=== PATIENT | female | born 1950 | race Caucasian/White ===

== ENCOUNTER 2022-05-11 20:32 | Emergency (ER) | payer BC, MEDICAID ==
[~2022-05-11] VITALS: Ht 152.4 cm; Wt 34.0 kg
[2022-05-11 20:54] LABS: BASOPHILS # (AUTO) 0.1 X10'3 (0-0.2); BASOPHILS % (AUTO) 0.4 % (0-1); EOSINOPHILS % (AUTO) 0.1 % (0-6); HEMATOCRIT 41.9 % (35.0-45.0); HEMOGLOBIN 13.9 g/dl (12.0-16.0); LYMPHOCYTES % (AUTO) 6.5 % (21-51); MEAN CORPUSCULAR HEMOGLOBIN 29.1 PG (27.0-31.0); MEAN CORPUSCULAR HGB CONC 33.2 g/dL (33.0-36.5); MEAN CORPUSCULAR VOLUME 87.8 FL (78-98); MEAN PLATELET VOLUME 7.3 FL (7.4-10.4); MONOCYTES # (AUTO) 1.1 X10'3 (0-0.9); MONOCYTES % (AUTO) 7.3 % (2-12); NEUTROPHILS # (AUTO) 13.3 X10'3 (1.8-7.7); NEUTROPHILS % (AUTO) 85.7 % (42-75); PLATELET COUNT 364 X10'3 (140-440); RED BLOOD COUNT 4.77 X10'6 (4.20-5.60); RED CELL DISTRIBUTION WIDTH 15.2 % (11.5-14.5); WHITE BLOOD COUNT 15.5 X10'3 (4.5-11.0)
[2022-05-11 20:58] VITALS: BP 161/110
--- NOTE | 2022-05-11 21:09 | NUR ---
patient placed on supplementary O2 in lobby 3l
[2022-05-11 21:13] LABS: ALANINE AMINOTRANSFERASE 15 U/L (12-78); ALBUMIN 3.9 G/DL (3.4-5.0); ALBUMIN/GLOBULIN RATIO 1.1 (1.1-1.5); ALKALINE PHOSPHATASE 76 IU/L (46-116); ANION GAP 8 (8-16); ASPARTATE AMINO TRANSFERASE 21 U/L (10-37); BILIRUBIN,TOTAL 0.6 MG/DL (0.1-1.0); BLOOD UREA NITROGEN 13 MG/DL (7-18); BUN/CREATININE RATIO 13.1 (6.6-38.0); CALCIUM 8.9 MG/DL (8.5-10.1); CHLORIDE 96 MMOL/L (99-107); CREATININE 0.99 MG/DL (0.40-0.90); GLUCOSE 114 MG/DL (70-104); MAGNESIUM 1.7 MG/DL (1.5-2.4); POTASSIUM 4.1 MMOL/L (3.5-5.1); SODIUM 136 MMOL/L (135-145); TOTAL CARBON DIOXIDE 31.6 MMOL/L (24-32); TOTAL PROTEIN 7.6 G/DL (6.4-8.2); eGFR 55 ML/MIN
== END 2022-05-12 04:33 | disposition left against medical advice (07) ==
LOC: ER 20:34
DX: R06.02 Shortness of breath (principal); Z53.21 Procedure and treatment not carried out due to patient leaving prior to being seen by health care provider
CPT/HCPCS: 36415; 80053; 83735; 83880; 84484; 85025; 93005

== ENCOUNTER 2022-05-13 13:16 | Inpatient (IN) | payer BC, MEDICAID ==
[~2022-05-13] VITALS: Ht 152.4 cm; Wt 47.2 kg
[2022-05-13 14:00] LABS: BASOPHILS # (AUTO) 0.1 X10'3 (0-0.2); BASOPHILS % (AUTO) 0.2 % (0-1); EOSINOPHILS % (AUTO) 0 % (0-6); HEMOGLOBIN 12.6 g/dl (12.0-16.0); LYMPHOCYTES # (AUTO) 0.6 X10'3 (1.1-4.8); LYMPHOCYTES % (AUTO) 2.7 % (21-51); MEAN CORPUSCULAR HEMOGLOBIN 28.6 PG (27.0-31.0); MEAN CORPUSCULAR HGB CONC 32.3 g/dL (33.0-36.5); MEAN CORPUSCULAR VOLUME 88.6 FL (78-98); MEAN PLATELET VOLUME 7.6 FL (7.4-10.4); MONOCYTES # (AUTO) 1.4 X10'3 (0-0.9); MONOCYTES % (AUTO) 6.2 % (2-12); NEUTROPHILS # (AUTO) 20.6 X10'3 (1.8-7.7); NEUTROPHILS % (AUTO) 90.9 % (42-75); PLATELET COUNT 272 X10'3 (140-440); RED CELL DISTRIBUTION WIDTH 15.1 % (11.5-14.5); WHITE BLOOD COUNT 22.6 X10'3 (4.5-11.0)
[2022-05-13] MEDS ORDERED: acetaminophen 325mg tablet PO STA (14:00)
[2022-05-13] MEDS ORDERED: normal saline 1000ML IV soln IV ONE (14:00)
[2022-05-13] MEDS ORDERED: methylPREDNISolone sod succ 125mg/2ml vial IV ONE (14:00)
[2022-05-13] MEDS ORDERED: magnesium 2GM in 50ml NS 50 ML IV ONE (14:00)
[2022-05-13] MEDS ORDERED: albuterol 2.5 MG/3 ML nebule CONTNEB PRN (14:00)
[2022-05-13 14:25] LABS: ALBUMIN 3.1 G/DL (3.4-5.0); ALBUMIN/GLOBULIN RATIO 0.8 (1.1-1.5); ALKALINE PHOSPHATASE 73 IU/L (46-116); ANION GAP 9 (8-16); ASPARTATE AMINO TRANSFERASE 32 U/L (10-37); BILIRUBIN,TOTAL 1.2 MG/DL (0.1-1.0); BLOOD UREA NITROGEN 21 MG/DL (7-18); BUN/CREATININE RATIO 20.2 (6.6-38.0); CALCIUM 8.8 MG/DL (8.5-10.1); CHLORIDE 92 MMOL/L (99-107); CREATININE 1.04 MG/DL (0.40-0.90); GLUCOSE 130 MG/DL (70-104); POTASSIUM 3.6 MMOL/L (3.5-5.1); SODIUM 131 MMOL/L (135-145); TOTAL CARBON DIOXIDE 29.7 MMOL/L (24-32); TOTAL PROTEIN 7.1 G/DL (6.4-8.2); eGFR 52 ML/MIN
[2022-05-13 14:26] LABS: ALANINE AMINOTRANSFERASE 30 U/L (12-78)
[2022-05-13] MEDS ORDERED: azithromycin/NS 500mg/250ml 250 ML IV ONE (14:40)
[2022-05-13] MEDS ORDERED: CefTRIAXone 2gm/D5W 50ml BAG 50 ML IV ONE (14:40)
[2022-05-13] MEDS ORDERED: normal saline 1000ML IV soln IVB ONE (16:00)
[2022-05-13] MEDS ORDERED: potassium Cl 20 mEq SR tablet PO PRN ×2 (17:15)
[2022-05-13] MEDS ORDERED: magnesium 4gm in 100ml NS 100 ML IV PRN (17:15)
[2022-05-13] MEDS ORDERED: ondansetron/PF 4mg/2ml inj IV PRN (17:15)
[2022-05-13] MEDS ORDERED: magnesium Cl slow-release 64mg tablet PO PRN (17:15)
[2022-05-13] MEDS ORDERED: potassium Cl 40MEQ/1/2NS 520ml 520 ML IV PRN (17:15)
[2022-05-13] MEDS ORDERED: magnesium hydroxide 30ml (MOM) UD suspension PO PRN (17:15)
[2022-05-13] MEDS ORDERED: mag hydrox/Alum hydrox/simeth 30ml oral suspension PO PRN (17:15)
[2022-05-13] MEDS: normal saline 1000ml 1,000 ML IV SCH (18:36)
[2022-05-13] MEDS: ipratropium/albuterol 3ml nebule NEB SCH ×2 (19:43→23:16)
--- NOTE | 2022-05-13 19:52 | NUR ---
JAMIE DAUGHTER: [phone]
[2022-05-13] MEDS: K and/or MAG REPLACEMENT MC SCH (20:00)
--- NOTE | 2022-05-13 20:03 | NUR ---
Patient in room ED 12. I have received report from GABY ROMERO and had the opportunity to ask questions and assume patient care.
[2022-05-13 21:00] VITALS: BP 129/57
[2022-05-13] MEDS: methylPREDNISolone sod succ 125mg/2ml vial IV SCH (21:11)
[2022-05-13] MEDS: docusate sod 100mg capsule PO SCH (21:11)
[2022-05-13] MEDS: heparin, porcine 5000 units/ml vial SQ SCH (21:12)
[2022-05-14 02:00] VITALS: BP 93/60
[2022-05-14 03:09] LABS: BASOPHILS % (AUTO) 0.1 % (0-1); EOSINOPHILS % (AUTO) 0 % (0-6); HEMATOCRIT 33.4 % (35.0-45.0); HEMOGLOBIN 11.1 g/dl (12.0-16.0); LYMPHOCYTES # (AUTO) 0.4 X10'3 (1.1-4.8); LYMPHOCYTES % (AUTO) 2.3 % (21-51); MEAN CORPUSCULAR HEMOGLOBIN 29.1 PG (27.0-31.0); MEAN CORPUSCULAR HGB CONC 33.1 g/dL (33.0-36.5); MEAN CORPUSCULAR VOLUME 87.8 FL (78-98); MEAN PLATELET VOLUME 7.7 FL (7.4-10.4); MONOCYTES # (AUTO) 0.6 X10'3 (0-0.9); MONOCYTES % (AUTO) 3.1 % (2-12); NEUTROPHILS # (AUTO) 17.1 X10'3 (1.8-7.7); NEUTROPHILS % (AUTO) 94.5 % (42-75); PLATELET COUNT 226 X10'3 (140-440); RED CELL DISTRIBUTION WIDTH 15.5 % (11.5-14.5); WHITE BLOOD COUNT 18.1 X10'3 (4.5-11.0)
[2022-05-14] MEDS: ipratropium/albuterol 3ml nebule NEB SCH ×6 (03:14→23:30)
[2022-05-14 03:20] LABS: GLUCOSE 145 MG/DL (70-104); POTASSIUM 3.8 MMOL/L (3.5-5.1); SODIUM 133 MMOL/L (135-145)
[2022-05-14 03:21] LABS: ALBUMIN 2.3 G/DL (3.4-5.0); ANION GAP 1 (8-16); BLOOD UREA NITROGEN 17 MG/DL (7-18); BUN/CREATININE RATIO 28.3 (6.6-38.0); CHLORIDE 102 MMOL/L (99-107); MAGNESIUM 2.3 MG/DL (1.5-2.4); TOTAL CARBON DIOXIDE 29.8 MMOL/L (24-32); eGFR > 90 ML/MIN
[2022-05-14] MEDS: normal saline 1000ml 1,000 ML IV SCH ×2 (04:15→13:54)
[2022-05-14 06:00] VITALS: BP 93/54
--- NOTE | 2022-05-14 06:37 | NUR ---
Problems reprioritized. Patient report given, questions answered & plan of care reviewed with GABY Peterson.
--- NOTE | 2022-05-14 06:54 | NUR ---
Patient in room PCU 3028. I have received report from GABY TOVAR, and had the opportunity to ask questions and assume patient care.
[2022-05-14] MEDS: K and/or MAG REPLACEMENT MC SCH ×2 (06:58→19:19)
[2022-05-14] MEDS: CefTRIAXone/D5W-Rocephin 1gm 50 ML IV SCH (08:41)
[2022-05-14] MEDS: methylPREDNISolone sod succ 125mg/2ml vial IV SCH ×2 (08:42→19:11)
[2022-05-14] MEDS: heparin, porcine 5000 units/ml vial SQ SCH ×2 (08:43→19:10)
[2022-05-14] MEDS: docusate sod 100mg capsule PO SCH ×2 (08:46→19:10)
[2022-05-14] MEDS: azithromycin 250mg tablet PO SCH (08:46)
[2022-05-14] MEDS: lactose-reduced food (Ensure Enlive) - 237ml bottle PO SCH ×3 (08:46→13:10)
[2022-05-14 11:25] VITALS: BP 107/62
--- NOTE | 2022-05-14 13:02 | NUR ---
Malnutrition consult: Pt seen at bedside reports gradual wt loss over the course of several years with unknown etiology. Pt reports weighing 110 lbs when she moved to [place] in 2014 and states current wt is in the 70s lb range. Unable to obtain more recent UBW. 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 Pt states appetite is currently improving, though only documented with 25% PO intake of first two meals. Per EMR pt refused first ONS, states she prefers strawberry flavor only which is unfortunately currently out of stock, pt agrees to vanilla in the mean time, dietary notified. Pt states she prefers Boost but willing to drink Ensure and gladly accepted ONS coupons. RD discussed ways to improve appetite and increase kcal intake in hopes of assisting with wt maintenance/gain. Pt admit for sepsis, PNA, COPD exacerbation, acute on chronic respiratory failure, and hyponatremia. Pt denies food allergies, food preferences, difficulty chewing/swallowing, or constipation/diarrhea. Per pt LBM this morning. Pt provided with RD contact information. Will continue to follow closely and monitor need for further nutrition intervention. Recommendations: 1) Liberalize to regular diet 2) [place] Ensure Plus HP TID, sub vanilla until strawberry back in stock (does not like chocolate) - Ensure Enlive currently out of stock 3) Routine bowel care 4) Scaled weight this admit; subsequent weekly scaled weights Addendum: 05/14/22 at [address] Amended: Links added.
[2022-05-14] MEDS ORDERED: ALBU17AE26 PO (13:05)
[2022-05-14 15:19] VITALS: BP 99/55
--- NOTE | 2022-05-14 18:19 | NUR ---
Problems reprioritized. Patient report given, questions answered & plan of care reviewed with GABY ROMERO.
[2022-05-14 19:00] VITALS: BP 100/55
[2022-05-14 22:29] VITALS: BP 96/60
[2022-05-15 03:14] VITALS: BP 117/67
[2022-05-15] MEDS: ipratropium/albuterol 3ml nebule NEB SCH ×6 (03:31→23:23)
[2022-05-15 06:00] VITALS: BP 101/59
--- NOTE | 2022-05-15 06:15 | NUR ---
Patient in room PCU 3028. I have received report from Chary GRIFFIN and had the opportunity to ask questions and assume patient care.Bedside report completed. Pt resting , call light in reach. Addendum: 05/15/22 at 0633 by Cheri Barrera RN Amended: Links added.
[2022-05-15 06:32] LABS: BASOPHILS # (AUTO) 0.1 X10'3 (0-0.2); BASOPHILS % (AUTO) 0.2 % (0-1); EOSINOPHILS % (AUTO) 0 % (0-6); HEMATOCRIT 34.4 % (35.0-45.0); HEMOGLOBIN 11.2 g/dl (12.0-16.0); LYMPHOCYTES # (AUTO) 0.5 X10'3 (1.1-4.8); LYMPHOCYTES % (AUTO) 1.7 % (21-51); MEAN CORPUSCULAR HEMOGLOBIN 28.8 PG (27.0-31.0); MEAN CORPUSCULAR HGB CONC 32.6 g/dL (33.0-36.5); MEAN CORPUSCULAR VOLUME 88.2 FL (78-98); MEAN PLATELET VOLUME 8.9 FL (7.4-10.4); MONOCYTES # (AUTO) 1.6 X10'3 (0-0.9); MONOCYTES % (AUTO) 5.2 % (2-12); NEUTROPHILS # (AUTO) 28.2 X10'3 (1.8-7.7); NEUTROPHILS % (AUTO) 92.9 % (42-75); PLATELET COUNT 303 X10'3 (140-440); RED CELL DISTRIBUTION WIDTH 15.8 % (11.5-14.5)
[2022-05-15 06:36] LABS: ALBUMIN 2.2 G/DL (3.4-5.0); ANION GAP 3 (8-16); BLOOD UREA NITROGEN 20 MG/DL (7-18); BUN/CREATININE RATIO 38.5 (6.6-38.0); CALCIUM 8.8 MG/DL (8.5-10.1); CHLORIDE 102 MMOL/L (99-107); CREATININE 0.52 MG/DL (0.40-0.90); GLUCOSE 131 MG/DL (70-104); MAGNESIUM 1.9 MG/DL (1.5-2.4); POTASSIUM 4.9 MMOL/L (3.5-5.1); SODIUM 134 MMOL/L (135-145); TOTAL CARBON DIOXIDE 28.9 MMOL/L (24-32); eGFR > 90 ML/MIN
[2022-05-15 06:37] LABS: WHITE BLOOD COUNT 30.4 X10'3 (4.5-11.0)
[2022-05-15 07:00] LABS: TOTAL CELLS COUNTED 100
[2022-05-15 07:01] LABS: ANISOCYTOSIS 1+; PLATELET ESTIMATE NORMAL
--- NOTE | 2022-05-15 07:10 | NUR ---
MESSAGE: 3028b Julián. WBC 30.4, Last LA 0.6. Pt on Rocephin 1 gm QD. BC neg. Cheri JUSTINU
[2022-05-15] MEDS: K and/or MAG REPLACEMENT MC SCH ×2 (08:00→19:55)
[2022-05-15] MEDS: lactose-reduced food (Ensure Enlive) - 237ml bottle PO SCH ×3 (08:00→18:01)
[2022-05-15] MEDS: methylPREDNISolone sod succ 125mg/2ml vial IV SCH ×2 (08:22→19:58)
[2022-05-15] MEDS: azithromycin 250mg tablet PO SCH (08:23)
[2022-05-15] MEDS: CefTRIAXone/D5W-Rocephin 1gm 50 ML IV SCH (08:23)
[2022-05-15] MEDS: docusate sod 100mg capsule PO SCH ×2 (08:23→19:54)
[2022-05-15] MEDS: heparin, porcine 5000 units/ml vial SQ SCH ×2 (08:24→19:58)
[2022-05-15 11:27] VITALS: BP 103/61
[2022-05-15 15:17] VITALS: BP 101/58
--- NOTE | 2022-05-15 18:01 | NUR ---
Pt had a good day. Watching Tv and working on word puzzles.she enjoyed her shampoo and bed bath.
--- NOTE | 2022-05-15 18:17 | NUR ---
Problems reprioritized. Patient report given, questions answered & plan of care reviewed with Chary GRIFFIN. Bedside report completed. Pt denies needs, Call light in reach. Addendum: 05/15/22 at 1818 by Cheri Barrera RN Amended: Links added.
[2022-05-15 19:24] VITALS: BP 114/72
[2022-05-15] MEDS: guaiFENesin ER 600mg tablet PO SCH (19:54)
[2022-05-15 22:42] VITALS: BP 116/70
[2022-05-16 02:45] VITALS: BP 108/59
[2022-05-16] MEDS: ipratropium/albuterol 3ml nebule NEB SCH ×6 (03:31→23:22)
[2022-05-16 06:00] VITALS: BP 100/62
[2022-05-16 06:46] LABS: EOSINOPHILS % (AUTO) 0 % (0-6); LYMPHOCYTES # (AUTO) 0.7 X10'3 (1.1-4.8); MEAN PLATELET VOLUME 8.2 FL (7.4-10.4)
[2022-05-16 06:47] LABS: BASOPHILS % (AUTO) 0.1 % (0-1); HEMATOCRIT 34.7 % (35.0-45.0); HEMOGLOBIN 11.2 g/dl (12.0-16.0); LYMPHOCYTES % (AUTO) 2.6 % (21-51); MEAN CORPUSCULAR HEMOGLOBIN 28.4 PG (27.0-31.0); MEAN CORPUSCULAR HGB CONC 32.1 g/dL (33.0-36.5); MEAN CORPUSCULAR VOLUME 88.4 FL (78-98); MONOCYTES # (AUTO) 1.3 X10'3 (0-0.9); MONOCYTES % (AUTO) 4.6 % (2-12); NEUTROPHILS # (AUTO) 25.6 X10'3 (1.8-7.7); NEUTROPHILS % (AUTO) 92.7 % (42-75); PLATELET COUNT 323 X10'3 (140-440); RED BLOOD COUNT 3.93 X10'6 (4.20-5.60); RED CELL DISTRIBUTION WIDTH 15.4 % (11.5-14.5)
[2022-05-16 06:54] LABS: ALBUMIN 2.2 G/DL (3.4-5.0); ANION GAP 2 (8-16); BLOOD UREA NITROGEN 18 MG/DL (7-18); BUN/CREATININE RATIO 41.9 (6.6-38.0); CHLORIDE 99 MMOL/L (99-107); CREATININE 0.43 MG/DL (0.40-0.90); GLUCOSE 112 MG/DL (70-104); MAGNESIUM 1.8 MG/DL (1.5-2.4); POTASSIUM 5.1 MMOL/L (3.5-5.1); SODIUM 135 MMOL/L (135-145); TOTAL CARBON DIOXIDE 34.4 MMOL/L (24-32); eGFR > 90 ML/MIN
[2022-05-16 07:00] LABS: WHITE BLOOD COUNT 27.6 X10'3 (4.5-11.0)
[2022-05-16 07:37] LABS: TOTAL CELLS COUNTED 100
[2022-05-16 07:38] LABS: PLATELET ESTIMATE NORMAL; STOMATOCYTES FEW
[2022-05-16] MEDS: methylPREDNISolone sod succ 125mg/2ml vial IV SCH ×2 (07:49→20:13)
[2022-05-16] MEDS: CefTRIAXone/D5W-Rocephin 1gm 50 ML IV SCH (07:49)
[2022-05-16] MEDS: azithromycin 250mg tablet PO SCH (07:51)
[2022-05-16] MEDS: docusate sod 100mg capsule PO SCH ×2 (07:51→20:14)
[2022-05-16] MEDS: heparin, porcine 5000 units/ml vial SQ SCH ×2 (07:51→20:13)
[2022-05-16] MEDS: K and/or MAG REPLACEMENT MC SCH ×2 (08:00→19:16)
[2022-05-16] MEDS: lactose-reduced food (Ensure Enlive) - 237ml bottle PO SCH ×3 (08:00→18:17)
[2022-05-16] MEDS: guaiFENesin ER 600mg tablet PO SCH ×2 (08:36→20:13)
[2022-05-16 11:40] VITALS: BP 120/62
[2022-05-16 16:01] VITALS: BP 111/60
[2022-05-16 18:00] VITALS: BP 110/62
[2022-05-16] MEDS: acetaminophen 325mg tablet PO PRN (20:14)
[2022-05-16 22:00] VITALS: BP 103/59
--- NOTE | 2022-05-17 00:54 | NUR ---
Room 3028B Pt. is awake alert oriented thin and undernourished appearing. Pt. is strong able to get out bed to use BSC with minimal assistance voids yellow clear urine. Will try External cath overnight. Able to use I/S up to 500 ml moist cough 02 on at 3L NC. Pt. takes po meds without difficulty. Plan for home with 02 NC tomorrow; pt states will need new Sofia oxygen old one is broken.
[2022-05-17 02:00] VITALS: BP 109/56
[2022-05-17] MEDS: ipratropium/albuterol 3ml nebule NEB SCH ×6 (03:21→22:52)
[2022-05-17 06:55] LABS: BASOPHILS % (AUTO) 0.2 % (0-1); EOSINOPHILS # (AUTO) 0.3 X10'3 (0-0.9); EOSINOPHILS % (AUTO) 1.6 % (0-6); HEMOGLOBIN 11.4 g/dl (12.0-16.0); LYMPHOCYTES % (AUTO) 5.2 % (21-51); MEAN CORPUSCULAR HEMOGLOBIN 28.9 PG (27.0-31.0); MEAN CORPUSCULAR HGB CONC 32.6 g/dL (33.0-36.5); MEAN CORPUSCULAR VOLUME 88.5 FL (78-98); MEAN PLATELET VOLUME 7.8 FL (7.4-10.4); MONOCYTES # (AUTO) 1.1 X10'3 (0-0.9); MONOCYTES % (AUTO) 6.1 % (2-12); NEUTROPHILS # (AUTO) 16.2 X10'3 (1.8-7.7); NEUTROPHILS % (AUTO) 86.9 % (42-75); PLATELET COUNT 341 X10'3 (140-440); RED BLOOD COUNT 3.96 X10'6 (4.20-5.60); RED CELL DISTRIBUTION WIDTH 15.6 % (11.5-14.5); WHITE BLOOD COUNT 18.6 X10'3 (4.5-11.0)
[2022-05-17 07:17] LABS: ALBUMIN 2.2 G/DL (3.4-5.0); ANION GAP -2 (8-16); BLOOD UREA NITROGEN 15 MG/DL (7-18); BUN/CREATININE RATIO 34.9 (6.6-38.0); CALCIUM 8.7 MG/DL (8.5-10.1); CHLORIDE 99 MMOL/L (99-107); CREATININE 0.43 MG/DL (0.40-0.90); GLUCOSE 97 MG/DL (70-104); POTASSIUM 4.7 MMOL/L (3.5-5.1); SODIUM 136 MMOL/L (135-145); TOTAL CARBON DIOXIDE 38.9 MMOL/L (24-32); eGFR > 90 ML/MIN
[2022-05-17 08:00] VITALS: BP 100/53
[2022-05-17] MEDS: K and/or MAG REPLACEMENT MC SCH ×2 (08:00→20:00)
[2022-05-17] MEDS: lactose-reduced food (Ensure Enlive) - 237ml bottle PO SCH ×3 (08:00→18:00)
[2022-05-17 08:03] LABS: TOTAL CELLS COUNTED 100
[2022-05-17 08:04] LABS: PLATELET ESTIMATE NORMAL
[2022-05-17] MEDS: CefTRIAXone/D5W-Rocephin 1gm 50 ML IV SCH (10:43)
[2022-05-17] MEDS: azithromycin 250mg tablet PO SCH (10:45)
[2022-05-17] MEDS: guaiFENesin ER 600mg tablet PO SCH ×2 (10:45→20:40)
[2022-05-17] MEDS: methylPREDNISolone sod succ 125mg/2ml vial IV SCH ×2 (10:45→20:41)
[2022-05-17] MEDS: heparin, porcine 5000 units/ml vial SQ SCH ×2 (10:46→20:41)
[2022-05-17] MEDS: docusate sod 100mg capsule PO SCH ×2 (10:47→20:40)
[2022-05-17 12:01] VITALS: BP 102/55
--- NOTE | 2022-05-17 12:07 | NUR ---
Reassessment: PO intake improved to average 75% for lunch and dinner 05/16 however per EMR pt only with 50% PO intake of protein at dinner 05/16. Pt receiving an Ensure TID and with fair acceptance, documented with average 60% PO intake of ONS, however documented to have refused ONS at dinner 05/16. Pending documentation of PO intake of meals and ONS for today. Pt has RD contact information and has been encouraged to reach out for additional preferences. LB 05/15, receiving routine bowel care and with additional PRN bowel care available. Will continue to follow closely. Recommendations: 1) Liberalize to regular diet 2) [place] Ensure Plus HP TID, sub vanilla until strawberry back in stock (does not like chocolate) - Ensure Enlive currently out of stock 3) Routine bowel care 4) Weekly scaled weights Addendum: 05/17/22 at [address] Amended: Links added.
[2022-05-17 16:19] VITALS: BP 101/45
[2022-05-17 18:00] VITALS: BP 111/51
--- NOTE | 2022-05-17 18:30 | NUR ---
Patient in room PCU 3028. I have received report from GABY Ramos and had the opportunity to ask questions and assume patient care.
[2022-05-17 22:00] VITALS: BP 103/62
[2022-05-18 02:00] VITALS: BP 108/76
[2022-05-18] MEDS: ipratropium/albuterol 3ml nebule NEB SCH ×6 (02:41→23:13)
[2022-05-18 05:53] LABS: HEMOGLOBIN 11.7 g/dl (12.0-16.0)
[2022-05-18 05:55] LABS: BASOPHILS % (AUTO) 0.2 % (0-1); EOSINOPHILS # (AUTO) 0.6 X10'3 (0-0.9); EOSINOPHILS % (AUTO) 3.5 % (0-6); HEMATOCRIT 35.4 % (35.0-45.0); LYMPHOCYTES # (AUTO) 1.4 X10'3 (1.1-4.8); LYMPHOCYTES % (AUTO) 7.9 % (21-51); MEAN CORPUSCULAR VOLUME 87.9 FL (78-98); MEAN PLATELET VOLUME 7.6 FL (7.4-10.4); MONOCYTES # (AUTO) 1.3 X10'3 (0-0.9); MONOCYTES % (AUTO) 7.9 % (2-12); NEUTROPHILS # (AUTO) 13.8 X10'3 (1.8-7.7); NEUTROPHILS % (AUTO) 80.5 % (42-75); PLATELET COUNT 367 X10'3 (140-440); RED BLOOD COUNT 4.02 X10'6 (4.20-5.60); WHITE BLOOD COUNT 17.2 X10'3 (4.5-11.0)
--- NOTE | 2022-05-18 06:22 | NUR ---
Problems reprioritized. Patient report given, questions answered & plan of care reviewed with GABY Ramos.
[2022-05-18 06:26] LABS: ALBUMIN 2.2 G/DL (3.4-5.0); ANION GAP 1 (8-16); BLOOD UREA NITROGEN 14 MG/DL (7-18); BUN/CREATININE RATIO 27.5 (6.6-38.0); CALCIUM 8.8 MG/DL (8.5-10.1); CHLORIDE 96 MMOL/L (99-107); CREATININE 0.51 MG/DL (0.40-0.90); GLUCOSE 94 MG/DL (70-104); POTASSIUM 4.9 MMOL/L (3.5-5.1); SODIUM 136 MMOL/L (135-145); TOTAL CARBON DIOXIDE 38.7 MMOL/L (24-32); eGFR > 90 ML/MIN
[2022-05-18 07:00] VITALS: BP 111/61
[2022-05-18] MEDS: K and/or MAG REPLACEMENT MC SCH ×2 (08:00→19:30)
[2022-05-18] MEDS: lactose-reduced food (Ensure Enlive) - 237ml bottle PO SCH ×3 (08:00→18:00)
[2022-05-18 09:02] LABS: PLATELET ESTIMATE NORMAL; TOTAL CELLS COUNTED 100
[2022-05-18 09:03] LABS: POIKILOCYTOSIS 1+; STOMATOCYTES 1+
[2022-05-18] MEDS: CefTRIAXone/D5W-Rocephin 1gm 50 ML IV SCH (10:17)
[2022-05-18] MEDS: guaiFENesin ER 600mg tablet PO SCH ×2 (10:21→19:29)
[2022-05-18] MEDS: docusate sod 100mg capsule PO SCH ×2 (10:21→19:28)
[2022-05-18] MEDS: azithromycin 250mg tablet PO SCH (10:22)
[2022-05-18] MEDS: methylPREDNISolone sod succ 125mg/2ml vial IV SCH ×2 (10:23→19:28)
[2022-05-18] MEDS: heparin, porcine 5000 units/ml vial SQ SCH ×2 (10:23→19:28)
[2022-05-18 12:09] VITALS: BP 143/79
[2022-05-18 16:01] VITALS: BP 110/65
[2022-05-18 18:00] VITALS: BP 136/68
[2022-05-18] MEDS: acetaminophen 325mg tablet PO PRN (19:28)
[2022-05-18 22:00] VITALS: BP 131/70
--- NOTE | 2022-05-18 22:54 | NUR ---
Room 3028B pt. is awake alert oriented in good spirits aware of possible home tomorrow. New Sofia at bedside.Pt. is tolerating foods and meds well. Will not drink Ensure due to mucus production. Peripheral IV intact. Pm meds given tolerted well Tylenol given. Pt. would also like purewick at home but would need suction/tubing and teaching. Plan home tomorrow with home 02 and purewick if possible.
[2022-05-19 02:00] VITALS: BP 115/68
[2022-05-19] MEDS: ipratropium/albuterol 3ml nebule NEB SCH ×3 (02:34→11:43)
[2022-05-19 07:22] VITALS: BP 135/76
[2022-05-19] MEDS: guaiFENesin ER 600mg tablet PO SCH (08:39)
[2022-05-19] MEDS: docusate sod 100mg capsule PO SCH (08:39)
[2022-05-19] MEDS: heparin, porcine 5000 units/ml vial SQ SCH (08:39)
[2022-05-19] MEDS: methylPREDNISolone sod succ 125mg/2ml vial IV SCH (08:39)
[2022-05-19] MEDS: CefTRIAXone/D5W-Rocephin 1gm 50 ML IV SCH (08:40)
[2022-05-19 11:28] VITALS: BP 139/70
--- NOTE | 2022-05-19 17:31 | NUR ---
Pt was transferred to [facility] as per Dr's orders. Pt's belongings were gathered up and placed in two bags and were sent with pt. Pt was unhooked from tele and IV's. Basic education and care planning was discussed with pt in room and with via phone. Pt remained on O2 with transport with [employer]. Pt was picked up around 1500 and transferred to [facility].
== END 2022-05-19 17:11 | DRG 871 ==
LOC: ER 13:16 → ED HOLD 17:16 → PCU 3S 21:01
PROVIDERS: ADMIT Family Medicine; ATTEND Family Medicine
DX: A41.9 Sepsis, unspecified organism (principal); I50.21 Acute systolic (congestive) heart failure; J18.9 Pneumonia, unspecified organism; J96.20 Acute and chronic respiratory failure, unspecified whether with hypoxia or hypercapnia; R64 Cachexia; J44.1 Chronic obstructive pulmonary disease with (acute) exacerbation; E87.1 Hypo-osmolality and hyponatremia; J44.0 Chronic obstructive pulmonary disease with (acute) lower respiratory infection; Z20.822 Contact with and (suspected) exposure to COVID-19; Z68.20 Body mass index [BMI] 20.0-20.9, adult; T38.0X5A Adverse effect of glucocorticoids and synthetic analogues, initial encounter; Z87.891 Personal history of nicotine dependence; Y92.89 Other specified places as the place of occurrence of the external cause; Z99.81 Dependence on supplemental oxygen; Z88.5 Allergy status to narcotic agent; Z88.8 Allergy status to other drugs, medicaments and biological substances
CPT/HCPCS: 36415; 71045; 80048; 80053; 83605; 83735; 83880; 84145; 84484; 85007; 85025; 87040; 87081; 87502; 87503; 87635; 94640; 94760; 97110; 97116; 97161; 97530; 99285; A7015; C9803; G0378; J0456; J0696; J1644; J2930; J3475; J7030

== ENCOUNTER 2022-08-27 15:57 | Inpatient (IN) | payer BC, MEDICAID ==
[~2022-08-27] VITALS: Ht 152.4 cm; Wt 34.0 kg
[~2022-08-27 15:57] MED LIST: ALBU17AE26 PO
[2022-08-27 16:49] LABS: BASOPHILS # (AUTO) 0.1 X10'3 (0-0.2); HEMOGLOBIN 12.8 g/dl (12.0-16.0)
[2022-08-27 16:50] LABS: BASOPHILS % (AUTO) 0.4 % (0-1); EOSINOPHILS # (AUTO) 0.2 X10'3 (0-0.9); EOSINOPHILS % (AUTO) 0.7 % (0-6); LYMPHOCYTES # (AUTO) 1.2 X10'3 (1.1-4.8); MEAN CORPUSCULAR HEMOGLOBIN 28.6 PG (27.0-31.0); MEAN CORPUSCULAR HGB CONC 32.8 g/dL (33.0-36.5); MEAN CORPUSCULAR VOLUME 87.2 FL (78-98); MEAN PLATELET VOLUME 7.3 FL (7.4-10.4); MONOCYTES # (AUTO) 1.6 X10'3 (0-0.9); MONOCYTES % (AUTO) 6.7 % (2-12); NEUTROPHILS # (AUTO) 21.3 X10'3 (1.8-7.7); NEUTROPHILS % (AUTO) 87.2 % (42-75); PLATELET COUNT 595 X10'3 (140-440); RED BLOOD COUNT 4.47 X10'6 (4.20-5.60); RED CELL DISTRIBUTION WIDTH 14.2 % (11.5-14.5); WHITE BLOOD COUNT 24.4 X10'3 (4.5-11.0)
[2022-08-27] MEDS ORDERED: dexamethasone sod phosphate 10mg/ml inj IV STA (16:58)
[2022-08-27] MEDS ORDERED: CefTRIAXone 2gm/D5W 50ml BAG 50 ML IV ONE (17:00)
[2022-08-27] MEDS ORDERED: ipratropium/albuterol 3ml nebule NEB ONE (17:00)
[2022-08-27 17:05] LABS: ALANINE AMINOTRANSFERASE 19 U/L (12-78); ALBUMIN 3.2 G/DL (3.4-5.0); ALBUMIN/GLOBULIN RATIO 0.6 (1.1-1.5); ALKALINE PHOSPHATASE 98 IU/L (46-116); ANION GAP 3 (8-16); ASPARTATE AMINO TRANSFERASE 17 U/L (10-37); BILIRUBIN,TOTAL 0.6 MG/DL (0.1-1.0); BLOOD UREA NITROGEN 15 MG/DL (7-18); BUN/CREATININE RATIO 22.7 (10.0-20.0); CALCIUM 10.2 MG/DL (8.5-10.1); CHLORIDE 92 MMOL/L (99-107); CREATININE 0.66 MG/DL (0.40-0.90); GLUCOSE 123 MG/DL (70-104); POTASSIUM 4.4 MMOL/L (3.5-5.1); SODIUM 136 MMOL/L (135-145); TOTAL PROTEIN 8.2 G/DL (6.4-8.2); eGFR 88 ML/MIN
[2022-08-27 17:06] LABS: TOTAL CARBON DIOXIDE 41.1 MMOL/L (24-32)
--- NOTE | 2022-08-27 17:08 | NUR ---
DR RENTERIA NOTIFIED OF PT CRITICAL LAB CO2 OF 41,1
[2022-08-27 17:12] LABS: PLATELET ESTIMATE INCREASED; TOTAL CELLS COUNTED 100; TOXIC GRANULATION 1+
[2022-08-27 18:44] LABS: ABG BASE EXCESS 12.4 mmol/L (-2.0-2.0); ABG HCO3 38.8 mmol/L (22.0-26.0); ABG OXYGEN SATURATION 90.8 % (94-97); ABG PCO2 (T) 57.8 mmHg (32.0-45.0); ABG PO2 (T) 56.3 mmHg (75.0-100.0); ALLEN'S TEST POSITIVE; FCOHb 1.5 % (0.0-3.9); FLOW 3 L/min; FMetHb 0.4 % (0.0-1.5); FO2Hb 89.1 % (94-97); TOTAL HEMOGLOBIN 13.2 G/dl (12.0-16.0)
[2022-08-27] MEDS ORDERED: magnesium 4gm in 100ml NS 100 ML IV PRN (22:30)
[2022-08-27] MEDS ORDERED: ondansetron/PF 4mg/2ml inj IV PRN (22:30)
[2022-08-27] MEDS ORDERED: acetaminophen 325mg tablet PO PRN ×2 (22:30)
[2022-08-27] MEDS ORDERED: potassium Cl 40MEQ/1/2NS 520ml 520 ML IV PRN (22:30)
[2022-08-27] MEDS ORDERED: potassium Cl 20 mEq SR tablet PO PRN ×2 (22:30)
[2022-08-27] MEDS ORDERED: magnesium 2GM in 50ml NS 50 ML IV PRN (22:30)
[2022-08-27] MEDS ORDERED: magnesium Cl slow-release 64mg tablet PO PRN (22:30)
[2022-08-28] MEDS: albuterol 2.5 MG/3 ML nebule NEB SCH ×6 (00:48→19:41)
[2022-08-28] MEDS ORDERED: TIOT4MIS3 INH (01:39)
[2022-08-28] MEDS ORDERED: ALEN70TA80 PO (01:39)
[2022-08-28 03:18] LABS: ALANINE AMINOTRANSFERASE 17 U/L (12-78); ALBUMIN 2.3 G/DL (3.4-5.0); ALBUMIN/GLOBULIN RATIO 0.5 (1.1-1.5); ALKALINE PHOSPHATASE 76 IU/L (46-116); ANION GAP 1 (8-16); ASPARTATE AMINO TRANSFERASE 15 U/L (10-37); BILIRUBIN,TOTAL 0.4 MG/DL (0.1-1.0); BLOOD UREA NITROGEN 19 MG/DL (7-18); BUN/CREATININE RATIO 28.8 (10.0-20.0); CALCIUM 9.3 MG/DL (8.5-10.1); CHLORIDE 92 MMOL/L (99-107); CREATININE 0.66 MG/DL (0.40-0.90); GLUCOSE 282 MG/DL (70-104); POTASSIUM 4.9 MMOL/L (3.5-5.1); SODIUM 132 MMOL/L (135-145); TOTAL CARBON DIOXIDE 38.9 MMOL/L (24-32); TOTAL PROTEIN 6.5 G/DL (6.4-8.2); eGFR 88 ML/MIN
[2022-08-28 03:25] LABS: BASOPHILS # (AUTO) 0.1 X10'3 (0-0.2); BASOPHILS % (AUTO) 0.2 % (0-1); EOSINOPHILS % (AUTO) 0 % (0-6); HEMATOCRIT 37.6 % (35.0-45.0); LYMPHOCYTES # (AUTO) 0.4 X10'3 (1.1-4.8); LYMPHOCYTES % (AUTO) 1.5 % (21-51); MEAN CORPUSCULAR HEMOGLOBIN 27.8 PG (27.0-31.0); MEAN CORPUSCULAR HGB CONC 31.9 g/dL (33.0-36.5); MEAN PLATELET VOLUME 7.6 FL (7.4-10.4); MONOCYTES # (AUTO) 0.3 X10'3 (0-0.9); NEUTROPHILS # (AUTO) 25.6 X10'3 (1.8-7.7); NEUTROPHILS % (AUTO) 97.3 % (42-75); PLATELET COUNT 522 X10'3 (140-440); RED BLOOD COUNT 4.32 X10'6 (4.20-5.60); RED CELL DISTRIBUTION WIDTH 13.8 % (11.5-14.5)
[2022-08-28 03:33] LABS: WHITE BLOOD COUNT 26.3 X10'3 (4.5-11.0)
[2022-08-28] MEDS: normal saline 1000ml 1,000 ML IV SCH ×2 (03:36→18:51)
[2022-08-28] MEDS: CefTRIAXone 2gm/D5W 50ml BAG 50 ML IV SCH (07:31)
[2022-08-28] MEDS: heparin, porcine 5000 units/ml vial SQ SCH ×2 (07:33→21:01)
[2022-08-28] MEDS: methylPREDNISolone sod succ 125mg/2ml vial IV SCH ×2 (07:33→21:01)
[2022-08-28] MEDS: azithromycin/NS 500mg/250ml 250 ML IV SCH (07:34)
[2022-08-28] MEDS: ipratropium 0.5 MG/2.5ML nebule NEB SCH ×3 (07:58→19:41)
--- NOTE | 2022-08-28 08:47 | NUR ---
Spoke with Dr Dumont this morning regarding pt. MD stating plan is to treat with abx and continue to monitor at this time.
--- NOTE | 2022-08-28 17:55 | NUR ---
Patient in room ED 9. I have received report from Shima in the ED and had the opportunity to ask questions and assume patient care.
--- NOTE | 2022-08-28 18:00 | NUR ---
GRAHAM CALLED TO GABY TAPIA ON ORTHO. WILL TRANSFER UP SHORTLY.
--- NOTE | 2022-08-28 18:25 | NUR ---
Problems reprioritized. Patient report given, questions answered & plan of care reviewed with Sendy.
[2022-08-28 18:30] VITALS: BP 104/62
[2022-08-28 22:00] VITALS: BP 121/60
[2022-08-29] MEDS: ipratropium 0.5 MG/2.5ML nebule NEB SCH (00:48)
[2022-08-29] MEDS: albuterol 2.5 MG/3 ML nebule NEB SCH ×2 (00:48→04:10)
[2022-08-29] MEDS: normal saline 1000ml 1,000 ML IV SCH ×3 (01:30→15:49)
[2022-08-29 02:31] VITALS: BP 113/55
[2022-08-29 05:07] VITALS: BP 102/61
--- NOTE | 2022-08-29 05:35 | NUR ---
Problems reprioritized. Patient report given, questions answered & plan of care reviewed with Michelle GRIFFIN.
--- NOTE | 2022-08-29 06:12 | NUR ---
Patient in room ORTHO 4022. I have received report from Herminia and had the opportunity to ask questions and assume patient care.
[2022-08-29] MEDS: methylPREDNISolone sod succ 125mg/2ml vial IV SCH ×2 (07:13→19:34)
[2022-08-29] MEDS: CefTRIAXone 2gm/D5W 50ml BAG 50 ML IV SCH (07:13)
[2022-08-29] MEDS: heparin, porcine 5000 units/ml vial SQ SCH ×2 (07:14→19:34)
[2022-08-29 07:59] LABS: BASOPHILS # (AUTO) 0.1 X10'3 (0-0.2); BASOPHILS % (AUTO) 0.2 % (0-1); EOSINOPHILS % (AUTO) 0 % (0-6); HEMATOCRIT 34.1 % (35.0-45.0); HEMOGLOBIN 10.8 g/dl (12.0-16.0); LYMPHOCYTES # (AUTO) 0.7 X10'3 (1.1-4.8); LYMPHOCYTES % (AUTO) 1.6 % (21-51); MEAN CORPUSCULAR HEMOGLOBIN 27.8 PG (27.0-31.0); MEAN CORPUSCULAR HGB CONC 31.5 g/dL (33.0-36.5); MEAN PLATELET VOLUME 7.4 FL (7.4-10.4); MONOCYTES % (AUTO) 2.3 % (2-12); NEUTROPHILS # (AUTO) 41.1 X10'3 (1.8-7.7); NEUTROPHILS % (AUTO) 95.9 % (42-75); PLATELET COUNT 513 X10'3 (140-440); RED BLOOD COUNT 3.88 X10'6 (4.20-5.60); RED CELL DISTRIBUTION WIDTH 14.2 % (11.5-14.5)
[2022-08-29] MEDS: ipratropium/albuterol 3ml nebule NEB SCH ×5 (08:07→23:32)
[2022-08-29 08:11] LABS: WHITE BLOOD COUNT 42.8 X10'3 (4.5-11.0)
--- NOTE | 2022-08-29 08:15 | NUR ---
RE: Julián in , per lab, WBCs of 42.8 Michelle
[2022-08-29 08:24] LABS: ALANINE AMINOTRANSFERASE 33 U/L (12-78); ALBUMIN/GLOBULIN RATIO 0.5 (1.1-1.5); ALKALINE PHOSPHATASE 73 IU/L (46-116); ANION GAP -1 (8-16); ASPARTATE AMINO TRANSFERASE 37 U/L (10-37); BILIRUBIN,TOTAL 0.1 MG/DL (0.1-1.0); BLOOD UREA NITROGEN 16 MG/DL (7-18); CALCIUM 9.1 MG/DL (8.5-10.1); CHLORIDE 101 MMOL/L (99-107); CREATININE 0.47 MG/DL (0.40-0.90); GLUCOSE 148 MG/DL (70-104); POTASSIUM 4.7 MMOL/L (3.5-5.1); SODIUM 138 MMOL/L (135-145); TOTAL CARBON DIOXIDE 37.6 MMOL/L (24-32); TOTAL PROTEIN 5.8 G/DL (6.4-8.2); eGFR > 90 ML/MIN
[2022-08-29] MEDS: azithromycin/NS 500mg/250ml 250 ML IV SCH (08:27)
[2022-08-29 08:51] LABS: PLATELET ESTIMATE INCREASED; TOTAL CELLS COUNTED 100
[2022-08-29 08:52] LABS: BURR CELLS FEW; TOXIC GRANULATION 1+
[2022-08-29] MEDS ORDERED: FLU VACC QS2022-23(6MOS UP)/PF 60 MCG/0.5 ML SYRINGE IMVAC ONE (10:00)
[2022-08-29] MEDS ORDERED: pneumococcal 23-VAL P-sac vacc 25 mcg/0.5ml vial IMVAC ONE (10:00)
[2022-08-29 11:00] VITALS: BP 97/52
--- NOTE | 2022-08-29 14:35 | NUR ---
Initial: Pt admit DX sepsis related to bilateral PNA, COPD exacerbation, acute respiratory failure, and hyponatremia per EMR. Noted pt BMI 14.6 via standing scale this admit consistent w/ prior reported wt hx 05/13/22' admit. Pt seen by RD at bedside; pt reports no trouble chewing/swallowing, food preferences/allergies, or nutrition concerns. Pt PO 100% first two meals w/ 50% lunch visualized during RD visit today; is agreeable to chopped meats for ease of PO-dietary notified. Pt prior April admit met malnutrition criteria given visible wasting amenable to Ensures; pt is agreeable to resuming vanilla/strawberry Ensure Plus High Protein TIDWM this admit-DO notified. Pt reports unsure of wt hx though PCP told her she had lost a "few pounds" last visit. Pt w/ visible muscle/fat wasting during RD visit likely maintains undernourished status at baseline meeting severe malnutrition criteria; DO notified. LBM 4/6 per EMR. Will continue to follow. Rec: 1. continue regular diet w/ chopped meats for ease of PO; encourage PO 2. [place]/Vanilla Ensure Plus High Protein TIDWM; pending physician verification in EMR 3. routine bowel care 4. weekly wt Addendum: 08/29/22 at [address] Amended: Links added.
[2022-08-29] MEDS: LACTOSE-REDUCED FOOD 237ML LIQUID PO SCH (18:00)
--- NOTE | 2022-08-29 18:09 | NUR ---
Problems reprioritized. Patient report given, questions answered & plan of care reviewed with Cara.
[2022-08-29 22:00] VITALS: BP 129/72
[2022-08-30 02:00] VITALS: BP 102/67
[2022-08-30] MEDS: ipratropium/albuterol 3ml nebule NEB SCH ×6 (03:16→23:14)
[2022-08-30 06:00] VITALS: BP_SYST 12; BP_SYST 120; BP_DIAS 66
[2022-08-30] MEDS: normal saline 1000ml 1,000 ML IV SCH ×2 (06:03→12:38)
--- NOTE | 2022-08-30 06:20 | NUR ---
Patient in room ORTHO 4022. I have received report from Cara and had the opportunity to ask questions and assume patient care.
[2022-08-30 06:35] LABS: BASOPHILS # (AUTO) 0.1 X10'3 (0-0.2); BASOPHILS % (AUTO) 0.3 % (0-1); EOSINOPHILS % (AUTO) 0 % (0-6); HEMOGLOBIN 10.6 g/dl (12.0-16.0); LYMPHOCYTES # (AUTO) 0.6 X10'3 (1.1-4.8); LYMPHOCYTES % (AUTO) 1.6 % (21-51); MEAN CORPUSCULAR HEMOGLOBIN 27.7 PG (27.0-31.0); MEAN CORPUSCULAR HGB CONC 31.3 g/dL (33.0-36.5); MEAN CORPUSCULAR VOLUME 88.4 FL (78-98); MEAN PLATELET VOLUME 7.8 FL (7.4-10.4); MONOCYTES # (AUTO) 0.6 X10'3 (0-0.9); MONOCYTES % (AUTO) 1.4 % (2-12); NEUTROPHILS % (AUTO) 96.7 % (42-75); PLATELET COUNT 506 X10'3 (140-440); RED BLOOD COUNT 3.84 X10'6 (4.20-5.60); RED CELL DISTRIBUTION WIDTH 14.2 % (11.5-14.5)
[2022-08-30 06:36] LABS: ALANINE AMINOTRANSFERASE 56 U/L (12-78); ALBUMIN/GLOBULIN RATIO 0.6 (1.1-1.5); ALKALINE PHOSPHATASE 83 IU/L (46-116); ANION GAP -1 (8-16); ASPARTATE AMINO TRANSFERASE 39 U/L (10-37); BILIRUBIN,TOTAL 0.1 MG/DL (0.1-1.0); BLOOD UREA NITROGEN 15 MG/DL (7-18); BUN/CREATININE RATIO 30.6 (10.0-20.0); CALCIUM 9.2 MG/DL (8.5-10.1); CHLORIDE 101 MMOL/L (99-107); CREATININE 0.49 MG/DL (0.40-0.90); GLUCOSE 141 MG/DL (70-104); POTASSIUM 4.8 MMOL/L (3.5-5.1); SODIUM 137 MMOL/L (135-145); TOTAL CARBON DIOXIDE 37.3 MMOL/L (24-32); TOTAL PROTEIN 5.6 G/DL (6.4-8.2); eGFR > 90 ML/MIN
[2022-08-30 06:43] LABS: WHITE BLOOD COUNT 39.3 X10'3 (4.5-11.0)
[2022-08-30 07:26] LABS: PLATELET ESTIMATE INCREASED; TOTAL CELLS COUNTED 100
[2022-08-30] MEDS: CefTRIAXone 2gm/D5W 50ml BAG 50 ML IV SCH (07:37)
[2022-08-30] MEDS: heparin, porcine 5000 units/ml vial SQ SCH ×2 (07:39→19:52)
[2022-08-30] MEDS: methylPREDNISolone sod succ 125mg/2ml vial IV SCH ×2 (07:39→19:52)
[2022-08-30] MEDS: LACTOSE-REDUCED FOOD 237ML LIQUID PO SCH ×3 (08:00→18:03)
[2022-08-30] MEDS: azithromycin/NS 500mg/250ml 250 ML IV SCH (09:05)
[2022-08-30 11:00] VITALS: BP 103/63
[2022-08-30 18:00] VITALS: BP 138/63
--- NOTE | 2022-08-30 18:08 | NUR ---
Problems reprioritized. Patient report given, questions answered & plan of care reviewed with
--- NOTE | 2022-08-30 19:18 | NUR ---
Patient suicidal, sitter placed in room. I will place order per Day Ifeanyi Olivera RN Addendum: 08/30/22 at 2 by Mikaela Nur RN wrong patient
[2022-08-30 22:00] VITALS: BP 125/87
[2022-08-31] MEDS: normal saline 1000ml 1,000 ML IV SCH ×2 (00:34→12:41)
[2022-08-31 02:00] VITALS: BP 136/71
[2022-08-31] MEDS: ipratropium/albuterol 3ml nebule NEB SCH ×3 (02:33→11:10)
[2022-08-31 06:00] VITALS: BP 138/66
--- NOTE | 2022-08-31 06:25 | NUR ---
Patient in room ORTHO 4022. I have received report from Alejandra GRIFFIN and had the opportunity to ask questions and assume patient care.
[2022-08-31] MEDS: LACTOSE-REDUCED FOOD 237ML LIQUID PO SCH ×2 (08:01→13:14)
[2022-08-31 08:02] LABS: BASOPHILS % (AUTO) 0.1 % (0-1); EOSINOPHILS % (AUTO) 0 % (0-6); HEMATOCRIT 32.9 % (35.0-45.0); HEMOGLOBIN 10.5 g/dl (12.0-16.0); LYMPHOCYTES # (AUTO) 0.6 X10'3 (1.1-4.8); LYMPHOCYTES % (AUTO) 2.1 % (21-51); MEAN CORPUSCULAR HEMOGLOBIN 28.3 PG (27.0-31.0); MEAN CORPUSCULAR HGB CONC 31.8 g/dL (33.0-36.5); MEAN CORPUSCULAR VOLUME 88.9 FL (78-98); MEAN PLATELET VOLUME 7.4 FL (7.4-10.4); MONOCYTES # (AUTO) 0.7 X10'3 (0-0.9); MONOCYTES % (AUTO) 2.6 % (2-12); NEUTROPHILS # (AUTO) 26.4 X10'3 (1.8-7.7); NEUTROPHILS % (AUTO) 95.2 % (42-75); PLATELET COUNT 479 X10'3 (140-440); RED CELL DISTRIBUTION WIDTH 14.2 % (11.5-14.5)
[2022-08-31] MEDS: heparin, porcine 5000 units/ml vial SQ SCH (08:12)
[2022-08-31 08:27] LABS: ALANINE AMINOTRANSFERASE 87 U/L (12-78); ALBUMIN 2.1 G/DL (3.4-5.0); ALBUMIN/GLOBULIN RATIO 0.7 (1.1-1.5); ALKALINE PHOSPHATASE 63 IU/L (46-116); ANION GAP 1 (8-16); ASPARTATE AMINO TRANSFERASE 41 U/L (10-37); BILIRUBIN,TOTAL 0.1 MG/DL (0.1-1.0); BLOOD UREA NITROGEN 18 MG/DL (7-18); CALCIUM 9.3 MG/DL (8.5-10.1); CHLORIDE 102 MMOL/L (99-107); CREATININE 0.58 MG/DL (0.40-0.90); GLUCOSE 135 MG/DL (70-104); POTASSIUM 4.8 MMOL/L (3.5-5.1); SODIUM 140 MMOL/L (135-145); TOTAL PROTEIN 5.3 G/DL (6.4-8.2); WHITE BLOOD COUNT 27.7 X10'3 (4.5-11.0); eGFR > 90 ML/MIN
[2022-08-31 10:00] VITALS: BP 124/53
[2022-08-31 10:01] LABS: PLATELET ESTIMATE INCREASED; TOTAL CELLS COUNTED 100
[2022-08-31] MEDS: CefTRIAXone 2gm/D5W 50ml BAG 50 ML IV SCH (10:16)
[2022-08-31] MEDS: methylPREDNISolone sod succ 125mg/2ml vial IV SCH (10:24)
[2022-08-31] MEDS ORDERED: PRED20TA PO (10:48)
[2022-08-31] MEDS ORDERED: CEFD300C3 PO (10:48)
[2022-08-31] MEDS: azithromycin/NS 500mg/250ml 250 ML IV SCH (11:05)
--- NOTE | 2022-08-31 13:35 | NUR ---
Pt dc to home via private vehicle, accompanied by s/o. Pt escorted via wheelchair by staff to private vehicle. Pt is alert, oriented, and appropriate for dc. VSS, piv dc with no complications. pt belongings all accounted for an returned with patient.
--- NOTE | 2022-08-31 14:25 | NUR ---
Agree with [employer] [employer] assessment.
== END 2022-08-31 13:30 | disposition home or self-care (01) | DRG 871 ==
LOC: ER 15:58 → ED HOLD 22:30 → EDBEDREQ 08-28 16:39 → ORTHO 4S 08-28 18:45
PROVIDERS: ADMIT Internal Medicine; ATTEND Family Medicine
DX: A41.9 Sepsis, unspecified organism (principal); J18.9 Pneumonia, unspecified organism; J96.20 Acute and chronic respiratory failure, unspecified whether with hypoxia or hypercapnia; J44.0 Chronic obstructive pulmonary disease with (acute) lower respiratory infection; J44.1 Chronic obstructive pulmonary disease with (acute) exacerbation; E87.1 Hypo-osmolality and hyponatremia; Z20.822 Contact with and (suspected) exposure to COVID-19; D64.9 Anemia, unspecified; D72.823 Leukemoid reaction; Z28.21 Immunization not carried out because of patient refusal; Z88.5 Allergy status to narcotic agent; Z88.8 Allergy status to other drugs, medicaments and biological substances; Z79.899 Other long term (current) drug therapy; Z99.81 Dependence on supplemental oxygen; Z86.16 Personal history of COVID-19; Z87.891 Personal history of nicotine dependence
CPT/HCPCS: 36415; 36600; 71046; 71250; 80053; 82803; 83605; 83880; 84145; 85007; 85018; 85025; 85651; 87040; 87070; 87081; 87502; 87503; 87811; 90686; 90732; 94640; 94760; 96365; 96375; 99285; A4615; A6212; A6213; G0378; J0456; J0696; J1100; J1644; J2930; J7030